=== PATIENT | female | born 1960 | race Caucasian/White ===

== ENCOUNTER 2018-09-14 21:28 | Inpatient (IN) | payer MEDICAID ==
[~2018-09-14] VITALS: Ht 160 cm; Wt 81.6 kg
[~2018-09-14 21:28] MED LIST: BP MEDICINE
[2018-09-14] MEDS ORDERED: SODIUM CHLORIDE 0.9% 1,000 ML IV ONE (21:56)
[2018-09-14] MEDS ORDERED: ONDANSETRON HCL 4MG/2ML INJ IV ONE (22:45)
[2018-09-14 22:56] LABS: HEMATOCRIT. 37.9 % (36.0-48.0); HEMOGLOBIN. 12.6 g/dL (12.0-16.0); MEAN CORPUSCULAR HEMOGLOBIN 29.7 pg (28.0-32.0); MEAN CORPUSCULAR VOLUME 89.3 fL (81.0-99.0); MEAN PLATELET VOLUME 9.6 fl (7.4-10.4); PLATELET 275 x1000/uL (130-400); RED BLOOD CELL COUNT 4.25 mill/uL (4.2-5.4); RED CELL DISTRIBUTION WIDTH 13.1 % (11.6-14.6)
[2018-09-14 22:58] LABS: CHLORIDE 97 mEq/L (98-107)
[2018-09-14 23:01] LABS: PROTHROMBIN TIME 10.4 sec (9.6-11.0)
[2018-09-14 23:09] LABS: PLATELET ESTIMATE NORMAL
[2018-09-14] MEDS ORDERED: VISCOUS LIDOCAINE 2% 15 ML UDC MM STA (23:09)
[2018-09-14] MEDS ORDERED: CALCIUM CARBONATE 500MG TABLET CHEW PO ONE (23:15)
[2018-09-14] MEDS ORDERED: MAGNESIUM/ALUMINUM HYDROXIDE/SIMETHICONE 30ML UDC PO ONE (23:15)
[2018-09-14] MEDS ORDERED: IOHEXOL-300 100 ML BOTTLE ONE (23:41)
[2018-09-15] MEDS ORDERED: MORPHINE SULFATE 4 MG/ML CPJ (NOT FOR IM USE) IV SCH (00:15)
[2018-09-15] MEDS ORDERED: SODIUM CHLORIDE 0.9% 1,000 ML IV ONE (00:15)
[2018-09-15 00:32] LABS: CLARITY URINE CLEAR (CLEAR); COLOR URINE YELLOW (YELLOW); KETONES URINE NEGATIVE (NEGATIVE); LEUKOCYTE ESTERASE URINE TRACE (NEGATIVE); NITRITE URINE NEGATIVE (NEGATIVE); OCCULT BLOOD URINE TRACE (NEGATIVE); PROTEIN URINE NEGATIVE (NEGATIVE); SPECIFIC GRAVITY URINE 1.022 (1.005-1.030); UROBILINOGEN URINE 0.2 E.U./dL (0.2-1.0)
[2018-09-15] MEDS ORDERED: DOCUSATE SODIUM 100MG CAPSULE PO PRN (00:45)
[2018-09-15] MEDS ORDERED: MAGNESIUM/ALUMINUM HYDROXIDE/SIMETHICONE 30ML UDC PO PRN (00:45)
[2018-09-15] MEDS ORDERED: MORPHINE SULFATE 2 MG/ML CPJ (NOT FOR IM USE) IV PRN (00:45)
[2018-09-15] MEDS ORDERED: CLONIDINE 0.1MG TABLET PO PRN (00:45)
[2018-09-15] MEDS ORDERED: IPRATROPIUM/ALBUTEROL 0.5-3(2.5)MG/3ML NEB INH PRN (00:45)
[2018-09-15] MEDS ORDERED: ACETAMINOPHEN 325MG TABLET PO PRN (00:45)
[2018-09-15] MEDS ORDERED: ONDANSETRON HCL 4MG/2ML INJ IV PRN ×2 (00:45→12:30)
[2018-09-15] MEDS ORDERED: HYDROCODONE/ACETAMINOPHEN 5/325MG TABLET PO PRN (00:45)
[2018-09-15] MEDS ORDERED: DIPHENHYDRAMINE 50MG/ML VIAL IV PRN (00:45)
[2018-09-15] MEDS ORDERED: CEFTRIAXONE 1 G PREMIX 50 ML IV SCH (01:00)
[2018-09-15 03:45] VITALS: BP 146/72
[2018-09-15 04:00] VITALS: BP 146/78
[2018-09-15] MEDS ORDERED: SODIUM CHLORIDE 0.9% 1,000 ML IV SCH (05:09)
[2018-09-15] MEDS ORDERED: MORPHINE SULFATE 4 MG/ML CPJ (NOT FOR IM USE) IV PRN (05:10)
[2018-09-15] MEDS: METRONIDAZOLE 500 MG PREMIX 100 ML IV SCH ×3 (06:55→22:42)
[2018-09-15 08:00] VITALS: BP 129/68
[2018-09-15 09:00] LABS: HEMATOCRIT. 35.5 % (36.0-48.0); HEMOGLOBIN. 12.1 g/dL (12.0-16.0); MEAN CORPUSCULAR HEMOGLOBIN 30.2 pg (28.0-32.0); MEAN CORPUSCULAR VOLUME 88.5 fL (81.0-99.0); MEAN PLATELET VOLUME 9.4 fl (7.4-10.4); PLATELET 251 x1000/uL (130-400); RED BLOOD CELL COUNT 4.01 mill/uL (4.2-5.4); RED CELL DISTRIBUTION WIDTH 13.3 % (11.6-14.6)
[2018-09-15 09:09] LABS: CHLORIDE 100 mEq/L (98-107)
[2018-09-15] MEDS: ENOXAPARIN 40MG/0.4ML SYR SUBCUT SCH (09:11)
[2018-09-15 09:17] LABS: LDL CHOLESTEROL 61 mg/dL (5-100)
[2018-09-15 09:18] LABS: CREATINE KINASE 96 IU/L (26-192); HDL CHOLESTEROL 70 mg/dL (40-59)
[2018-09-15 09:21] LABS: CREATINE KINASE MB FRACTION 1.1 ng/mL (0.5-3.6)
[2018-09-15 11:02] LABS: PLATELET ESTIMATE NORMAL
[2018-09-15 12:00] VITALS: BP 135/63
[2018-09-15] MEDS: DEXT 5%/0.45% NACL 1000ML 1,000 ML IV SCH ×2 (12:52→20:29)
[2018-09-15] MEDS ORDERED: POTASSIUM CHLORIDE INJ 40 MEQ in DEXT 5% WATER 250 ML IV NR (13:30)
[2018-09-15 14:46] LABS: *AMPHETAMINES SCREEN URINE NEGATIVE (NEGATIVE); *BARBITURATES SCREEN URINE NEGATIVE (NEGATIVE); *BENZODIAZEPINES SCREEN URINE NEGATIVE (NEGATIVE); *COCAINE SCREEN URINE NEGATIVE (NEGATIVE); METHADONE URINE SCREEN NEGATIVE (NEGATIVE); OPIATES URINE SCREEN NEGATIVE (NEGATIVE)
[2018-09-15 14:47] LABS: CANNABINOID URINE SCREEN NEGATIVE (NEGATIVE); PHENCYCLIDINE URINE SCREEN NEGATIVE (NEGATIVE)
[2018-09-15] MEDS: LEVOFLOXACIN 500MG PREMIX 100 ML IV SCH (15:07)
[2018-09-15 16:00] VITALS: BP 128/68
[2018-09-15 17:17] LABS: CREATINE KINASE 82 IU/L (26-192)
[2018-09-15 17:18] LABS: CREATINE KINASE MB FRACTION < 1.0 ng/mL (0.5-3.6)
[2018-09-15 20:00] VITALS: BP 130/62
[2018-09-15] MEDS ORDERED: VANCOMYCIN 1500MG in DEXTROSE 5% WATER 250ML IV NR (20:00)
[2018-09-16] VITALS: BP 136/65
[2018-09-16 04:00] VITALS: BP 117/63
[2018-09-16] MEDS: METRONIDAZOLE 500 MG PREMIX 100 ML IV SCH ×3 (05:57→22:17)
[2018-09-16 06:53] LABS: HEMOGLOBIN. 11.7 g/dL (12.0-16.0); MEAN CORPUSCULAR HEMOGLOBIN 30.1 pg (28.0-32.0); MEAN CORPUSCULAR VOLUME 89.9 fL (81.0-99.0); MEAN PLATELET VOLUME 9.7 fl (7.4-10.4); PLATELET 245 x1000/uL (130-400); RED CELL DISTRIBUTION WIDTH 13.4 % (11.6-14.6)
[2018-09-16 07:39] LABS: CHLORIDE 111 mEq/L (98-107)
[2018-09-16 07:53] LABS: AMYLASE 472 IU/L (25-115)
[2018-09-16 08:00] VITALS: BP 119/58
[2018-09-16] MEDS: VANCOMYCIN 1 G PREMIX 200 ML IV SCH ×2 (09:21→20:31)
[2018-09-16] MEDS: DEXT 5%/0.45% NACL 1000ML 1,000 ML IV SCH ×2 (09:21→18:59)
[2018-09-16] MEDS: ENOXAPARIN 40MG/0.4ML SYR SUBCUT SCH (10:20)
[2018-09-16 12:00] VITALS: BP 126/84
[2018-09-16] MEDS: LEVOFLOXACIN 500MG PREMIX 100 ML IV SCH (13:49)
[2018-09-16 16:00] VITALS: BP 123/78
[2018-09-16] MEDS ORDERED: POTASSIUM CHLORIDE 20MEQ TABLET SR PO NR (16:30)
[2018-09-16 20:00] VITALS: BP 133/61
[2018-09-17] VITALS: BP 125/65
[2018-09-17] MEDS: DEXT 5%/0.45% NACL 1000ML 1,000 ML IV SCH (03:58)
[2018-09-17 04:00] VITALS: BP 133/68
[2018-09-17] MEDS: METRONIDAZOLE 500 MG PREMIX 100 ML IV SCH ×3 (05:40→22:10)
[2018-09-17 06:34] LABS: BASOPHILS % 0.3 % (0.0-2.0); EOSINOPHILS % 0.4 % (0.0-5.0); HEMATOCRIT. 34.6 % (36.0-48.0); HEMOGLOBIN. 11.6 g/dL (12.0-16.0); MEAN CORPUSCULAR HEMOGLOBIN 29.8 pg (28.0-32.0); MEAN CORPUSCULAR VOLUME 88.9 fL (81.0-99.0); MEAN PLATELET VOLUME 9.4 fl (7.4-10.4); MONOCYTES % 7.6 % (2.0-8.0); NEUTROPHILS % 80.7 % (40.0-76.0); PLATELET 263 x1000/uL (130-400); RED CELL DISTRIBUTION WIDTH 13.2 % (11.6-14.6)
[2018-09-17 06:36] LABS: PARTIAL THROMBOPLASTIN TIME 29.8 sec (23.4-31.0); PROTHROMBIN TIME 10.7 sec (9.6-11.0)
[2018-09-17 07:26] LABS: PLATELET ESTIMATE NORMAL
[2018-09-17 08:01] VITALS: BP 138/73
[2018-09-17 08:41] LABS: CHLORIDE 110 mEq/L (98-107)
[2018-09-17 08:55] LABS: AMYLASE 95 IU/L (25-115)
[2018-09-17] MEDS ORDERED: POTASSIUM CHLORIDE 20MEQ TABLET SR PO NR (09:45)
[2018-09-17 12:00] VITALS: BP 136/74
[2018-09-17] MEDS: LEVOFLOXACIN 500MG PREMIX 100 ML IV SCH (13:25)
[2018-09-17] MEDS ORDERED: VANCOMYCIN 1250MG in DEXTROSE 5% WATER 250ML IV SCH (14:00)
[2018-09-17 16:00] VITALS: BP 128/66
[2018-09-17 20:00] VITALS: BP 144/77
[2018-09-18] VITALS: BP 139/58
[2018-09-18] MEDS ORDERED: POTASSIUM CHLORIDE INJ 40 MEQ in SODIUM CHLORIDE 0.9% 250 ML IV NR ×2
[2018-09-18 04:00] VITALS: BP 118/71
[2018-09-18 06:01] LABS: PARTIAL THROMBOPLASTIN TIME 30.5 sec (23.4-31.0); PROTHROMBIN TIME 10.5 sec (9.6-11.0)
[2018-09-18 06:05] LABS: BASOPHILS % 0.4 % (0.0-2.0); EOSINOPHILS % 0.3 % (0.0-5.0); HEMATOCRIT. 34.8 % (36.0-48.0); HEMOGLOBIN. 11.9 g/dL (12.0-16.0); LYMPHOCYTES % 15.2 % (20.0-50.0); MEAN CORPUSCULAR HEMOGLOBIN 30.6 pg (28.0-32.0); MEAN CORPUSCULAR VOLUME 89.1 fL (81.0-99.0); MEAN PLATELET VOLUME 9.5 fl (7.4-10.4); NEUTROPHILS % 77.1 % (40.0-76.0); PLATELET 291 x1000/uL (130-400); RED CELL DISTRIBUTION WIDTH 13.2 % (11.6-14.6)
[2018-09-18] MEDS: METRONIDAZOLE 500 MG PREMIX 100 ML IV SCH ×3 (07:02→22:51)
[2018-09-18 07:37] LABS: CHLORIDE 110 mEq/L (98-107)
[2018-09-18 08:00] VITALS: BP 130/69
[2018-09-18] MEDS: DEXT 5%/0.45% NACL 1000ML 1,000 ML IV SCH ×2 (10:23→20:30)
[2018-09-18 12:00] VITALS: BP 125/71
[2018-09-18] MEDS: LEVOFLOXACIN 500MG PREMIX 100 ML IV SCH (12:40)
[2018-09-18] MEDS ORDERED: SIMETHICONE 40 MG/0.6 ML 30ML ONE (13:11)
[2018-09-18] MEDS ORDERED: IOHEXOL-300 100 ML BOTTLE ONE (13:11)
[2018-09-18] MEDS ORDERED: ROCURONIUM BROMIDE 10MG/ML VIAL 5ML IV ONE (15:07)
[2018-09-18] MEDS ORDERED: FENTANYL CITRATE/PF 50MCG/ML 2ML VIAL ONE (15:07)
[2018-09-18] MEDS ORDERED: LIDOCAINE HCL/PF 1% 10 MG/ML 5ML VIAL ONE (15:08)
[2018-09-18] MEDS ORDERED: MIDAZOLAM HCL 2 MG/2 ML VIAL ONE (15:08)
[2018-09-18] MEDS ORDERED: SODIUM CHLORIDE 0.9% 10ML VIAL ONE (15:08)
[2018-09-18] MEDS ORDERED: METOCLOPRAMIDE HCL 10MG/2ML VIAL ONE (15:08)
[2018-09-18] MEDS ORDERED: NEOSTIGMINE METHYLSULFATE 1MG/ML 10 ML VIAL ONE (15:08)
[2018-09-18] MEDS ORDERED: EPHEDRINE SULFATE 50MG/ML VIAL ONE (15:08)
[2018-09-18] MEDS ORDERED: GLYCOPYRROLATE 0.2 MG/ML 2ML VIAL ONE (15:08)
[2018-09-18] MEDS ORDERED: ONDANSETRON HCL 4MG/2ML INJ ONE (15:08)
[2018-09-18] MEDS ORDERED: PROPOFOL 200MG/20ML VIAL IV ONE (15:08)
[2018-09-18] MEDS ORDERED: PHENYLEPHRINE HCL 10 MG/ML 1ML (IV VIAL) IV ONE (15:08)
[2018-09-18] MEDS ORDERED: SUCCINYLCHOLINE CHLORIDE 200MG/10ML IV ONE (15:08)
[2018-09-18] MEDS ORDERED: SODIUM CHLORIDE 0.9% 1,000 ML IV ONE (16:11)
[2018-09-18] MEDS ORDERED: ONDANSETRON HCL 4MG/2ML INJ IV PRN (16:15)
[2018-09-18] MEDS ORDERED: MEPERIDINE HCL/PF 25MG/ML CPJ IV PRN ×2 (16:15)
[2018-09-18] MEDS ORDERED: MORPHINE SULFATE 2 MG/ML CPJ (NOT FOR IM USE) IV PRN (16:15)
[2018-09-18] MEDS ORDERED: HYDROMORPHONE HCL/PF 2MG/ML CPJ IV PRN (16:15)
[2018-09-18 17:57] VITALS: BP 135/79
[2018-09-19 06:00] LABS: BASOPHILS % 0.3 % (0.0-2.0); EOSINOPHILS % 0.1 % (0.0-5.0); HEMATOCRIT. 34.8 % (36.0-48.0); HEMOGLOBIN. 11.5 g/dL (12.0-16.0); LYMPHOCYTES % 12.1 % (20.0-50.0); MEAN CORPUSCULAR HEMOGLOBIN 29.9 pg (28.0-32.0); MEAN CORPUSCULAR VOLUME 90.5 fL (81.0-99.0); MEAN PLATELET VOLUME 9.3 fl (7.4-10.4); MONOCYTES % 6.7 % (2.0-8.0); NEUTROPHILS % 80.8 % (40.0-76.0); PLATELET 310 x1000/uL (130-400); RED BLOOD CELL COUNT 3.85 mill/uL (4.2-5.4); RED CELL DISTRIBUTION WIDTH 13.2 % (11.6-14.6)
[2018-09-19 06:23] LABS: CHLORIDE 112 mEq/L (98-107)
[2018-09-19] MEDS: METRONIDAZOLE 500 MG PREMIX 100 ML IV SCH ×3 (06:29→22:17)
[2018-09-19 08:15] VITALS: BP 129/78
[2018-09-19] MEDS ORDERED: POTASSIUM CHLORIDE 20MEQ TABLET SR PO SCH (10:00)
[2018-09-19 12:00] VITALS: BP 125/69
[2018-09-19] MEDS ORDERED: SKIN ADHESIVE 0.7 GM EA TOP ONE (12:26)
[2018-09-19] MEDS ORDERED: LIDOCAINE HCL 1% 20ML VIAL (Pyxis) INJ ONE (12:26)
[2018-09-19] MEDS ORDERED: BUPIVACAINE HCL/PF 0.5% (5MG/ML) 10ML ONE (12:27)
[2018-09-19] MEDS ORDERED: BACITRACIN 50,000 UNITS/VIAL ONE (12:27)
[2018-09-19] MEDS: DEXT 5%/0.45% NACL 1000ML 1,000 ML IV SCH ×2 (12:34→23:08)
[2018-09-19] MEDS: LEVOFLOXACIN 500MG PREMIX 100 ML IV SCH (12:35)
[2018-09-19 16:00] VITALS: BP 116/61
[2018-09-19] MEDS ORDERED: CEFOXITIN SODIUM 2 G in DEXT 5% WATER 100 ML IV STA (16:18)
[2018-09-19] MEDS ORDERED: MIDAZOLAM HCL 2 MG/2 ML VIAL ONE (18:18)
[2018-09-19] MEDS ORDERED: SUCCINYLCHOLINE CHLORIDE 200MG/10ML IV ONE (18:19)
[2018-09-19] MEDS ORDERED: LIDOCAINE HCL/PF 1% 10 MG/ML 5ML VIAL ONE (18:19)
[2018-09-19] MEDS ORDERED: PROPOFOL 200MG/20ML VIAL IV ONE ×2 (18:19→19:54)
[2018-09-19] MEDS ORDERED: ROCURONIUM BROMIDE 10MG/ML VIAL 5ML IV ONE (18:19)
[2018-09-19] MEDS ORDERED: FENTANYL CITRATE/PF 50MCG/ML 2ML VIAL ONE (18:19)
[2018-09-19] MEDS ORDERED: EPHEDRINE SULFATE 50MG/ML VIAL ONE (18:20)
[2018-09-19] MEDS ORDERED: ONDANSETRON HCL 4MG/2ML INJ ONE (19:28)
[2018-09-19] MEDS ORDERED: DEXAMETHASONE 4MG/ML 1ML VIAL ONE (19:28)
[2018-09-19] MEDS ORDERED: NEOSTIGMINE METHYLSULFATE 1MG/ML 10 ML VIAL ONE (20:25)
[2018-09-19] MEDS ORDERED: GLYCOPYRROLATE 0.2 MG/ML 2ML VIAL ONE (20:25)
[2018-09-19] MEDS ORDERED: ESMOLOL HCL 10MG/ML 10ML VIAL IV ONE (20:29)
[2018-09-19] MEDS ORDERED: HYDROMORPHONE HCL/PF 2MG/ML CPJ IV PRN ×2 (21:00)
[2018-09-19 22:30] VITALS: BP 150/63
[2018-09-20] VITALS: BP 139/58
[2018-09-20 04:00] VITALS: BP 139/66
[2018-09-20 06:15] LABS: BASOPHILS % 0.2 % (0.0-2.0); HEMATOCRIT. 34.9 % (36.0-48.0); HEMOGLOBIN. 11.8 g/dL (12.0-16.0); MEAN CORPUSCULAR VOLUME 89.1 fL (81.0-99.0); MEAN PLATELET VOLUME 8.8 fl (7.4-10.4); MONOCYTES % 4.7 % (2.0-8.0); NEUTROPHILS % 87.1 % (40.0-76.0); PLATELET 335 x1000/uL (130-400); RED BLOOD CELL COUNT 3.92 mill/uL (4.2-5.4); RED CELL DISTRIBUTION WIDTH 13.3 % (11.6-14.6)
[2018-09-20] MEDS: METRONIDAZOLE 500 MG PREMIX 100 ML IV SCH (06:23)
[2018-09-20 06:35] LABS: CHLORIDE 108 mEq/L (98-107)
[2018-09-20 08:00] VITALS: BP 139/70
[2018-09-20 11:44] VITALS: BP 135/70
== END 2018-09-20 12:50 | disposition home or self-care (01) | DRG 710 ==
LOC: ER 21:28 → 5WST 09-15 00:12 → UNDOADMIN 09-15 00:12 → 5WST 09-15 00:14 → EDBEDREQTM 09-15 02:32 → EDBEDREQSVC 09-15 02:32 → ENRESERV 09-15 03:02
PROVIDERS: ADMIT Internal Medicine; ATTEND Internal Medicine
PROC: 0F798ZZ Dilation of Common Bile Duct, Via Natural or Artificial Opening Endoscopic (ICD-10-PCS; 2018-09-18)
PROC: BF101ZZ Fluoroscopy of Bile Ducts using Low Osmolar Contrast (ICD-10-PCS; 2018-09-18)
PROC: 0FC98ZZ Extirpation of Matter from Common Bile Duct, Via Natural or Artificial Opening Endoscopic (ICD-10-PCS; 2018-09-18)
PROC: 0FT44ZZ Resection of Gallbladder, Percutaneous Endoscopic Approach (ICD-10-PCS; principal; 2018-09-19)
DX: A41.89 Other specified sepsis (principal); K85.10 Biliary acute pancreatitis without necrosis or infection; E87.1 Hypo-osmolality and hyponatremia; K80.64 Calculus of gallbladder and bile duct with chronic cholecystitis without obstruction; K29.70 Gastritis, unspecified, without bleeding; E87.6 Hypokalemia; I10 Essential (primary) hypertension
CPT/HCPCS: 36415; 71045; 74177; 74181; 74328; 76700; 80048; 80061; 80076; 80202; 80305; 82150; 82550; 82553; 83036; 83615; 84443; 84484; 87077; 88304; 93005; 93306; 93970; 96374; 96375; 99285; C1726; C1769; J0330; J0696; J1100; J1170; J1650; J1956; J2250; J2270; J2370; J2405; J2704; J2710; J2765; J3010; J3370; J3480; J3490; J7030; J7040; J7060; Q9967